=== PATIENT | female | born 1990 | race African-American/Black ===

== ENCOUNTER 2017-03-02 02:57 | Emergency (ER) | payer MEDICAID ==
[~2017-03-02] VITALS: Ht 172.7 cm; Wt 84.4 kg
[2017-03-02 03:21] VITALS: BP 142/85
== END 2017-03-02 07:01 | disposition home or self-care (01) ==
LOC: ER 02:59
DX: S50.02XA Contusion of left elbow, initial encounter (principal); M25.512 Pain in left shoulder; W01.0XXA Fall on same level from slipping, tripping and stumbling without subsequent striking against object, initial encounter; Y93.89 Activity, other specified; Y92.090 Kitchen in other non-institutional residence as the place of occurrence of the external cause; Y99.8 Other external cause status
CPT/HCPCS: 73030; 73060; 73070